=== PATIENT | female | born 1970 | race Caucasian/White ===

== ENCOUNTER 2018-09-07 09:52 | Emergency (ER) | payer BC ==
--- NOTE | 2018-09-07 10:37 | Emergency Department Record ---
History of Present Illness - General Chief Complaint: Cough Stated Complaint: COUGH Time Seen by Provider: 09/07/18 10:13 Source: Patient Mode of Arrival: Ambulatory Limitations: No limitations - History of Present Illness Initial Comments: pt has a yellow productive cough, sinus drainage, sore throat. no known exposures. her bs have been going up MD Complaint: Cough, Nasal congestion, Rhinorrhea, Sore throat Onset/Timin -: Days(s) Severity: Moderate Consistency: Constant Associated Symptoms: Cough, Nasal congestion, Sore throat - Related Data Home Medications Medication Instructions Recorded Confirmed Last Taken Dapagliflozin Propanediol [Farxiga] 10 mg PO DAILY 09/07/18 09/07/18 09/04/18 Previous Rx's Medication Instructions Recorded Azithromycin [Zithromax] 250 mg PO DAILY #6 tab 09/07/18 Allergies Allergy/AdvReac Type Severity Reaction Status Date / Time No Known Allergies Allergy PT UNSURE Unverified 09/07/18 10:03 OF REACTION Travel Screening - Travel/Exposure Within Last 30 Days Have you traveled within the last 30 days?: No - Travel/Exposure Within Last Year Have you traveled outside the [place] in the last year?: No - Additonal Travel Details Have you been exposed to anyone with a communicable illness?: No - Travel Symptoms Symptom Screening: None Review of Systems Reviewed: No additional complaints except as noted below Constitutional: Reports: As per HPI. Denies: Chills, Fever, Malaise, Night sweats, Weakness, Weight change Eyes: Reports: As per HPI. Denies: Eye discharge, Eye pain, Photophobia, Vision change ENT: Reports: As per HPI, Congestion. Denies: Dental pain, Ear pain, Epistaxis , Hearing loss, Throat pain Respiratory: Reports: As per HPI, Cough. Denies: Dyspnea, Hemoptysis, Stridor, Wheezes Cardiovascular: Reports: As per HPI. Denies: Arrhythmia, Chest pain, Dyspnea on exertion, Edema, Murmurs, Orthopnea, Palpitations, Paroxysmal nocturnal dyspnea, Rheumatic Fever, Syncope Endocrine: Reports: As per HPI. Denies: Fatigue, Heat or cold intolerance, Polydipsia, Polyuria Gastrointestinal: Reports: As per HPI. Denies: Abdominal pain, Constipation, Diarrhea, Hematemesis, Hematochezia, Melena, Nausea, Vomiting Genitourinary: Reports: As per HPI. Denies: Abnormal menses, Discharge, Dyspareunia, Dysuria, Frequency, Hematuria, Incontinence, Retention, Urgency Musculoskeletal: Reports: As per HPI. Denies: Arthralgia, Back pain, Gout, Joint swelling, Myalgia, Neck pain Skin: Reports: As per HPI. Denies: Bruising, Change in color, Change in hair/ nails, Lesions, Pruritus, Rash Neurological: Reports: As per HPI. Denies: Abnormal gait, Confusion, Headache, Numbness, Paresthesias, Seizure, Tingling, Tremors, Vertigo, Weakness Psychiatric: Reports: As per HPI. Denies: Anxiety, Auditory hallucinations, Depression, Homicidal thoughts, Suicidal thoughts, Visual hallucinations Hematological/Lymphatic: Reports: As per HPI. Denies: Anemia, Blood Clots, Easy bleeding, Easy bruising, Swollen glands Past Medical History - SOCIAL HISTORY Smoking Status: Never smoker Alcohol Use: Rare Drug Use: None - RESPIRATORY Hx Respiratory Disorders: No Hx Bronchitis: Yes Hx Sleep Apnea: Yes Hx of CPAP: Yes (new having a hard time getting used to it) - CARDIOVASCULAR Hx Cardio Disorders: No - NEURO Hx Neuro Disorders: No - GI Hx GI Disorders: No - Hx Genitourinary Disorders: No - ENDOCRINE Hx Endocrine Disorders: Yes - MUSCULOSKELETAL Hx Musculoskeletal Disorders: No Comment:: right shoulder pain and decreased movement - PSYCH Hx Psych Problems: No - HEMATOLOGY/ONCOLOGY Hx Hematology/Oncology Disorders: No Family Medical History Any Significant Family History?: Yes Hx Diabetes: Father, Mother Physical Exam - General General Appearance: Alert, Oriented x3, Cooperative, Mild distress - Head Head exam: Normal inspection - Eye Eye exam: Normal appearance, PERRL, EOMI Pupils: Normal accommodation - ENT ENT exam: Normal exam, Mucous membranes moist, Normal external ear exam, Normal orophraynx Ear exam: Normal external inspection. negative: External canal tenderness Nasal Exam: Normal inspection. negative: Discharge, Sinus tenderness Mouth exam: Normal external inspection, Tongue normal Teeth exam: Normal inspection. negative: Dental caries Throat exam: Normal inspection. negative: Tonsillar erythema, Tonsillar exudate - Neck Neck exam: Normal inspection, Full ROM. negative: Tenderness - Respiratory Respiratory exam: Normal lung sounds bilaterally. negative: Respiratory distress - Cardiovascular Cardiovascular Exam: Regular rate, Normal rhythm, Normal heart sounds - GI/Abdominal GI/Abdominal exam: Soft, Normal bowel sounds. negative: Tenderness - Rectal Rectal exam: Deferred - exam: Deferred - Extremities Extremities exam: Normal inspection, Full ROM, Normal capillary refill. negative: Tenderness - Back Back exam: Reports: Normal inspection, Full ROM. Denies: Muscle spasm, Rash noted, Tenderness - Neurological Neurological exam: Alert, CN II-XII intact, Normal gait, Oriented X3 - Psychiatric Psychiatric exam: Normal affect, Normal mood - Skin Skin exam: Dry, Intact, Normal color, Warm Course Vital Signs 09/07/18 09/07/18 09:59 10:06 Temperature 98.1 F 98.1 F Pulse Rate 105 H Pulse Rate [ 103 H Pulse Ox Probe] Respiratory 18 20 Rate Blood Pressure 178/92 Blood Pressure 178/92 [Right Arm] Pulse Ox 95 93 L Medical Decision Making - Lab Data Lab Results 09/07/18 Range/Units 10:24 POC Glucose 241 H (70-110) mg/dL Disposition Disposition: Discharge Clinical Impression: Bronchitis Disposition: Home, Self-Care Condition: (1) Good Instructions: Acute Bronchitis (ED) Additional Instructions: followup with family doctor this week. return sooner if worse. monitor glucose. Prescriptions: Azithromycin [Zithromax] 250 mg PO DAILY #6 tab Forms: Patient Portal Access Quality - Quality Measures Quality Measures: Adult Bronchitis (18-64yr) - Adult Bronchitis Quality Measure: Measure #116: Avoidance of ABX w/Adult Bronchitis Is patient being admitted: No Avoidance of ABX w/Bronchitis: Medical Reason for prescribing ABX [G9712] Medical Reason For Rx: Acute sinusitus - Blood Pressure Screening Does Patient Have Any of the Following: No Blood Pressure Classification: Hypertensive Reading Systolic Measurement: 178 Diastolic Measurement: 92 Screening for High Blood Pressure: < First Hypertensive BP, F/U Documented > [ G8950] First Hypertensive Follow-up Interventions: Follow-up with rescreen GT 1 day and LT 4 weeks.
[2018-09-07 11:45] LABS: INFLUENZA A NEGATIVE (NEGATIVE); INFLUENZA B NEGATIVE (NEGATIVE)
--- NOTE | 2018-09-07 22:45 | RADIOLOGY REPORT ---
EXAM: CHEST 2 VIEWS HISTORY: RHINORRHEA AND DRY COUGH SINCE SATURDAY. TECHNIQUE: Chest, two-view. COMPARISON: 06/13/17. FINDINGS: The cardiomediastinal silhouette is stable. The lungs and pleural spaces are clear. IMPRESSION: NO ACUTE CARDIOPULMONARY ABNORMALITY. JOB NUMBER: [id number] MTDD
== END 2018-09-07 12:01 | disposition home or self-care (01) ==
LOC: ER 09:52
DX: J20.9 Acute bronchitis, unspecified (principal); E11.9 Type 2 diabetes mellitus without complications; Z96.41 Presence of insulin pump (external) (internal)
CPT/HCPCS: 36416; 71046; 82948; 87400; 99283; 99284